=== PATIENT | male | born 1955 | race Caucasian/White ===

== ENCOUNTER 2020-01-17 08:13 | Emergency (ER) | payer MEDICAID ==
[~2020-01-17] VITALS: Ht 177.8 cm; Wt 54.9 kg
[2020-01-17] MEDS ORDERED: LORazepam 1MG TABLET PO ONE (08:30)
[2020-01-17] MEDS ORDERED: LORazepam 1MG TABLET ONE (08:40)
[2020-01-17 08:56] LABS: BASOPHILS # (AUTO) 0.03 x10^3/uL (0-0.1); BASOPHILS % (AUTO) 0 % (0-1); EOSINOPHILS # (AUTO) 0.02 x10^3/uL (0-0.4); EOSINOPHILS % (AUTO) 0 % (1-7); LYMPHOCYTES # (AUTO) 0.72 x10^3/uL (1-3.4); LYMPHOCYTES % (AUTO) 7 % (22-44); MD NO; MEAN CORPUSCULAR HEMOGLOBIN 34.7 pg (27.5-34.5); MEAN PLATELET VOLUME 6.2 fL (7.4-10.4); MONOCYTES # (AUTO) 0.67 x10^3/uL (0.2-0.8); MONOCYTES % (AUTO) 7 % (2-9); NEUTROPHILS # (AUTO) 8.37 x10^3/uL (1.8-6.8); NEUTROPHILS % (AUTO) 85 % (42-75); PLATELET COUNT 333 x10^3/uL (130-400); RED BLOOD COUNT 4.33 x10^6/uL (4.38-5.82)
[2020-01-17 08:59] LABS: INTERNATIONAL NORMALIZED RATIO 1.03 (0.93-1.1); PROTHROMBIN TIME 10.9 Seconds (9.6-11.5)
[2020-01-17] MEDS ORDERED: SODIUM CHLORIDE FLUSH 10ML SYR IVF ONE (09:00)
--- NOTE | 2020-01-17 09:00 | NUR ---
PT GAVE URINE SAMPLE WITH ROVERTO BLOOD.
[2020-01-17 09:01] LABS: ALBUMIN 3.9 g/dL (3.4-5.0); ANION GAP 9 mmol/L (5-15); CALCIUM 9.1 mg/dL (8.5-10.1); CHLORIDE 99 mmol/L (98-107); CREATININE 0.82 mg/dL (0.7-1.3)
--- NOTE | 2020-01-17 09:24 | NUR ---
catheter placed with pt tolerating well. no clots but hematuria. flused with normal saline 500 ml until clear.
--- NOTE | 2020-01-17 10:23 | NUR ---
UPON RETURN FROM CT PROVIDED PO WATER AT PROVIDER REQUEST. CATHETER DRAINING BLOOD TINGED URINE, LESS BLOODY THAN BEFORE BLADDER FLUSHED
[2020-01-17] MEDS ORDERED: OMNIPAQUE 350 MG/ML, 150 ML BOTTLE ONE (10:25)
[2020-01-17 11:25] LABS: MICROSCOPIC INDICATED
[2020-01-17 11:37] LABS: CULTURE INDICATED? NO
--- NOTE | 2020-01-17 11:45 | NUR ---
PT SLEEPING. BLOOD TINTED URINE NOTED IN URINE COLLECTION TUBE.
--- NOTE | 2020-01-17 11:58 | NUR ---
SPEAKING WITH PT ABOUT CT RESULTS
[2020-01-17 12:41] VITALS: BP 141/94
== END 2020-01-17 12:43 | disposition home or self-care (01) ==
LOC: ED 10:16
DX: R31.0 Gross hematuria (principal); Z85.9 Personal history of malignant neoplasm, unspecified; I10 Essential (primary) hypertension
CPT/HCPCS: 36415; 51702; 74178; 80048; 81001; 82040; 85025; 85610; 85730; 99285; Q9967

== ENCOUNTER 2020-03-09 08:28 | Day surgery (SDC) | payer MEDICAID ==
[~2020-03-09] VITALS: Ht 172.7 cm; Wt 50.0 kg
[2020-03-09] MEDS ORDERED: SODIUM CHLORIDE 0.9% 1,000 ML IV ONE (09:00)
[2020-03-09 09:02] VITALS: BP 89/60
[2020-03-09] MEDS ORDERED: LIDOCAINE 1%, 20ML ONE (10:09)
[2020-03-09] MEDS ORDERED: LIDOCAINE 1%, 10ML ONE (10:09)
[2020-03-09] MEDS ORDERED: VANCOMYCIN PMX 1GM/200ML 200 ML IV STA (10:36)
== END 2020-03-09 12:55 | disposition home or self-care (01) ==
LOC: OUT 08:28
PROVIDERS: ATTEND Specialist
DX: C67.1 Malignant neoplasm of dome of bladder (principal); I10 Essential (primary) hypertension; F17.210 Nicotine dependence, cigarettes, uncomplicated; Z79.899 Other long term (current) drug therapy; Z98.890 Other specified postprocedural states
CPT/HCPCS: 36561; 76937; 77001; 99156; 99157; C1788; C1894; J1642

== ENCOUNTER → 2020-03-10 | Outpatient (CLI) | payer MEDICAID ==
[~2020-03-10] MED LIST: FENTANYL PF 100 MCG/2ML ONE; FLUMAZENIL 0.1 MG/1 ML, 5ML ONE; MIDAZOLAM 1 MG/ML, 5ML ONE; NALOXONE 1 MG/ML, 2ML ONE; OMNIPAQUE 350 MG/ML, 150 ML BOTTLE ONE
== END | disposition home or self-care (01) ==
LOC: CFH 09:07
PROVIDERS: ATTEND Specialist
DX: C67.1 Malignant neoplasm of dome of bladder (principal); I71.2 Thoracic aortic aneurysm, without rupture; R91.1 Solitary pulmonary nodule; J98.11 Atelectasis; M85.88 Other specified disorders of bone density and structure, other site; S22.080D Wedge compression fracture of T11-T12 vertebra, subsequent encounter for fracture with routine healing; S32.020D Wedge compression fracture of second lumbar vertebra, subsequent encounter for fracture with routine healing; X58.XXXD Exposure to other specified factors, subsequent encounter; N28.1 Cyst of kidney, acquired; K76.0 Fatty (change of) liver, not elsewhere classified
CPT/HCPCS: 71260; 74177; J2250; J3010; Q9967; J2310

== ENCOUNTER 2020-03-29 04:56 | Inpatient (IN) | payer MEDICAID ==
[~2020-03-29] VITALS: Ht 180.3 cm; Wt 50.0 kg
[2020-03-29] MEDS ORDERED: SODIUM CHLORIDE 0.9% 1,000 ML IV ONE (05:04)
[2020-03-29] MEDS ORDERED: LIDOCAINE 2%,20 ML JEL.PF.APP MM ONE ×2 (05:20→05:30)
[2020-03-29 05:27] LABS: BASOPHILS # (AUTO) 0.03 x10^3/uL (0-0.1); BASOPHILS % (AUTO) 1 % (0-1); EOSINOPHILS # (AUTO) 0.02 x10^3/uL (0-0.4); EOSINOPHILS % (AUTO) 0 % (1-7); LYMPHOCYTES # (AUTO) 0.86 x10^3/uL (1-3.4); LYMPHOCYTES % (AUTO) 17 % (22-44); MD NO; MEAN CORPUSCULAR HEMOGLOBIN 33.8 pg (27.5-34.5); MEAN CORPUSCULAR HGB CONC 34.3 g/dL (33.2-36.2); MEAN CORPUSCULAR VOLUME 98.6 fL (81-97); MEAN PLATELET VOLUME 6.3 fL (7.4-10.4); MONOCYTES # (AUTO) 0.35 x10^3/uL (0.2-0.8); MONOCYTES % (AUTO) 7 % (2-9); NEUTROPHILS # (AUTO) 3.86 x10^3/uL (1.8-6.8); NEUTROPHILS % (AUTO) 76 % (42-75); PLATELET COUNT 269 x10^3/uL (130-400); RED BLOOD COUNT 3.62 x10^6/uL (4.38-5.82); RED CELL DISTRIBUTION WIDTH 12.7 % (9.4-14.8)
[2020-03-29] MEDS ORDERED: SODIUM CHLORIDE FLUSH 10ML SYR IVF ONE (05:30)
[2020-03-29 05:37] LABS: INTERNATIONAL NORMALIZED RATIO 1.03 (0.93-1.1); PROTHROMBIN TIME 10.9 Seconds (9.6-11.5)
[2020-03-29 05:38] LABS: ALBUMIN 3.4 g/dL (3.4-5.0); ANION GAP 9 mmol/L (5-15); CALCIUM 8.8 mg/dL (8.5-10.1); CHLORIDE 102 mmol/L (98-107); CREATININE 0.84 mg/dL (0.7-1.3)
[2020-03-29 05:44] LABS: MICROSCOPIC INDICATED
[2020-03-29] MEDS ORDERED: CEFTRIAXONE PMX 1GM/50ML 50 ML IV ONE (06:00)
--- NOTE | 2020-03-29 06:30 | NUR ---
TAVARES CATHETER INSERTED WITH 30CC BALLOON INFLATED. CONTINUOUS BLADDER IRRIGATION SET UP AND STARTING TO DRAIN FROM DARK RED TO PINK ON THE FIRST LITER OF NS.
[2020-03-29] MEDS ORDERED: LISI-170 PO (06:52)
--- NOTE | 2020-03-29 06:55 | NUR ---
REPORT RECEIVED FROM CHRIS CHINO. BLADDER IRRIGATION IN PROCESS.
[2020-03-29] MEDS ORDERED: MORPHINE SULFATE 4 MG/ML, 1ML ONE (06:57)
[2020-03-29] MEDS ORDERED: ONDANSETRON 2MG/ML, 2ML ONE (06:57)
[2020-03-29] MEDS ORDERED: ONDANSETRON 2MG/ML, 2ML IVPush ONE (07:00)
[2020-03-29] MEDS ORDERED: MORPHINE SULFATE 4 MG/ML, 1ML IVPush ONE (07:00)
--- NOTE | 2020-03-29 07:23 | NUR ---
dr baldwin spoke with dr stuart
--- NOTE | 2020-03-29 07:27 | NUR ---
REPORT GIVEN TO TATIANA CHINO. PT IS READY FOR TRANSPORT AT THIS TIME.
[2020-03-29] MEDS ORDERED: CEFTRIAXONE PMX 1GM/50ML 50 ML ONE (07:28)
--- NOTE | 2020-03-29 07:43 | NUR ---
3L CBI COMPLETED IN ED. URINE STILL DARK RED. PT TRANSPORTED UPSTAIRS. PER DR.COLEY LOMAX TO CLAMP CBI DURING TRANSPORT.
[2020-03-29 08:53] VITALS: BP 134/98
[2020-03-29] MEDS ORDERED: ONDANSETRON ODT 4 MG PO PRN (09:00)
[2020-03-29] MEDS ORDERED: ONDANSETRON 2MG/ML, 2ML IVPush PRN (09:00)
[2020-03-29] MEDS: LISINOPRIL 20 MG TABLET PO SCH (09:18)
[2020-03-29] MEDS: NICOTINE 14MG/24 HR PATCH.TD24 TD SCH (09:18)
[2020-03-29 15:09] VITALS: BP 124/80
[2020-03-29 18:30] VITALS: BP 112/76
[2020-03-29 18:39] LABS: BASOPHILS # (AUTO) 0.04 x10^3/uL (0-0.1); BASOPHILS % (AUTO) 1 % (0-1); EOSINOPHILS # (AUTO) 0.05 x10^3/uL (0-0.4); EOSINOPHILS % (AUTO) 1 % (1-7); LYMPHOCYTES # (AUTO) 0.92 x10^3/uL (1-3.4); LYMPHOCYTES % (AUTO) 14 % (22-44); MD NO; MEAN CORPUSCULAR HEMOGLOBIN 33.7 pg (27.5-34.5); MEAN CORPUSCULAR HGB CONC 33.8 g/dL (33.2-36.2); MEAN CORPUSCULAR VOLUME 99.7 fL (81-97); MEAN PLATELET VOLUME 6.1 fL (7.4-10.4); MONOCYTES # (AUTO) 0.65 x10^3/uL (0.2-0.8); MONOCYTES % (AUTO) 10 % (2-9); NEUTROPHILS # (AUTO) 5.16 x10^3/uL (1.8-6.8); NEUTROPHILS % (AUTO) 76 % (42-75); PLATELET COUNT 287 x10^3/uL (130-400); RED BLOOD COUNT 3.76 x10^6/uL (4.38-5.82); RED CELL DISTRIBUTION WIDTH 12.6 % (9.4-14.8)
[2020-03-30] MEDS: OXYcodone/APAP 5/325MG TABLET PO PRN ×2 (00:36→13:12)
[2020-03-30 00:56] VITALS: BP 148/82
[2020-03-30 05:18] LABS: BASOPHILS # (AUTO) 0.02 x10^3/uL (0-0.1); BASOPHILS % (AUTO) 0 % (0-1); EOSINOPHILS # (AUTO) 0.09 x10^3/uL (0-0.4); EOSINOPHILS % (AUTO) 1 % (1-7); LYMPHOCYTES # (AUTO) 1.16 x10^3/uL (1-3.4); LYMPHOCYTES % (AUTO) 17 % (22-44); MD NO; MEAN CORPUSCULAR HGB CONC 33.6 g/dL (33.2-36.2); MEAN CORPUSCULAR VOLUME 98.2 fL (81-97); MEAN PLATELET VOLUME 6.5 fL (7.4-10.4); MONOCYTES # (AUTO) 0.57 x10^3/uL (0.2-0.8); MONOCYTES % (AUTO) 8 % (2-9); NEUTROPHILS # (AUTO) 4.97 x10^3/uL (1.8-6.8); NEUTROPHILS % (AUTO) 73 % (42-75); PLATELET COUNT 275 x10^3/uL (130-400); RED BLOOD COUNT 3.91 x10^6/uL (4.38-5.82); RED CELL DISTRIBUTION WIDTH 12.5 % (9.4-14.8)
[2020-03-30 05:25] LABS: ANION GAP 7 mmol/L (5-15); CHLORIDE 103 mmol/L (98-107)
[2020-03-30 05:27] LABS: CREATININE 0.68 mg/dL (0.7-1.3)
[2020-03-30 07:04] VITALS: BP 138/75
[2020-03-30] MEDS: CEFTRIAXONE PMX 1GM/50ML 50 ML IV SCH (09:35)
[2020-03-30] MEDS: CHOLECALCIFEROL 5,000u TAB PO SCH (09:36)
[2020-03-30] MEDS: NICOTINE 14MG/24 HR PATCH.TD24 TD SCH (09:36)
[2020-03-30] MEDS: LISINOPRIL 20 MG TABLET PO SCH (09:53)
[2020-03-30 14:30] VITALS: BP 127/74
[2020-03-30 19:58] VITALS: BP 101/72
[2020-03-31 01:25] VITALS: BP 110/74
[2020-03-31] MEDS: OXYcodone/APAP 5/325MG TABLET PO PRN ×4 (02:02→20:30)
[2020-03-31 06:55] VITALS: BP 114/75
[2020-03-31] MEDS: CEFTRIAXONE PMX 1GM/50ML 50 ML IV SCH (07:34)
[2020-03-31] MEDS: LISINOPRIL 20 MG TABLET PO SCH (07:34)
[2020-03-31] MEDS: CHOLECALCIFEROL 5,000u TAB PO SCH (07:34)
[2020-03-31] MEDS: NICOTINE 14MG/24 HR PATCH.TD24 TD SCH (07:35)
[2020-03-31] MEDS: OXYBUTYNIN CHLORIDE 5 MG TABLET PO SCH ×3 (09:23→20:30)
[2020-03-31 09:26] LABS: BASOPHILS % (AUTO) 0 % (0-1); EOSINOPHILS # (AUTO) 0.03 x10^3/uL (0-0.4); EOSINOPHILS % (AUTO) 1 % (1-7); LYMPHOCYTES # (AUTO) 0.86 x10^3/uL (1-3.4); LYMPHOCYTES % (AUTO) 13 % (22-44); MD NO; MEAN CORPUSCULAR HEMOGLOBIN 33.4 pg (27.5-34.5); MEAN CORPUSCULAR HGB CONC 33.3 g/dL (33.2-36.2); MEAN CORPUSCULAR VOLUME 100.1 fL (81-97); MEAN PLATELET VOLUME 5.8 fL (7.4-10.4); MONOCYTES # (AUTO) 0.45 x10^3/uL (0.2-0.8); MONOCYTES % (AUTO) 7 % (2-9); NEUTROPHILS # (AUTO) 5.34 x10^3/uL (1.8-6.8); NEUTROPHILS % (AUTO) 80 % (42-75); PLATELET COUNT 304 x10^3/uL (130-400); RED BLOOD COUNT 4.16 x10^6/uL (4.38-5.82); RED CELL DISTRIBUTION WIDTH 12.4 % (9.4-14.8)
[2020-03-31 09:35] LABS: ANION GAP 7 mmol/L (5-15); CALCIUM 9.1 mg/dL (8.5-10.1); CHLORIDE 103 mmol/L (98-107); CREATININE 0.66 mg/dL (0.7-1.3)
[2020-03-31 12:35] VITALS: BP 94/61
[2020-03-31 18:10] VITALS: BP 94/57
[2020-04-01] MEDS: OXYcodone/APAP 5/325MG TABLET PO PRN ×4 (01:17→19:41)
[2020-04-01 01:18] VITALS: BP 101/69
[2020-04-01 08:00] VITALS: BP 105/70
[2020-04-01] MEDS: OXYBUTYNIN CHLORIDE 5 MG TABLET PO SCH ×3 (08:40→19:41)
[2020-04-01] MEDS: LISINOPRIL 20 MG TABLET PO SCH (08:40)
[2020-04-01] MEDS: CEFTRIAXONE PMX 1GM/50ML 50 ML IV SCH (08:40)
[2020-04-01] MEDS: NICOTINE 14MG/24 HR PATCH.TD24 TD SCH (08:41)
[2020-04-01] MEDS: CHOLECALCIFEROL 5,000u TAB PO SCH (11:00)
[2020-04-01 12:38] VITALS: BP 115/76
[2020-04-01 18:08] VITALS: BP 102/68
[2020-04-01] MEDS ORDERED: BISACODYL 10 MG SUPP PR PRN (18:30)
[2020-04-01] MEDS ORDERED: POLYETHYLENE GLYCOL 17 GM PACKET PO PRN (18:30)
[2020-04-01] MEDS: DOCUSATE 50 MG/5 ML ORAL SOL PO SCH (20:10)
[2020-04-02 00:22] VITALS: BP 100/65
[2020-04-02] MEDS: OXYcodone/APAP 5/325MG TABLET PO PRN ×4 (04:47→14:00)
[2020-04-02 06:01] LABS: BASOPHILS # (AUTO) 0.04 x10^3/uL (0-0.1); BASOPHILS % (AUTO) 0 % (0-1); EOSINOPHILS # (AUTO) 0.08 x10^3/uL (0-0.4); EOSINOPHILS % (AUTO) 1 % (1-7); LYMPHOCYTES # (AUTO) 0.84 x10^3/uL (1-3.4); LYMPHOCYTES % (AUTO) 9 % (22-44); MD NO; MEAN CORPUSCULAR HEMOGLOBIN 33.4 pg (27.5-34.5); MEAN CORPUSCULAR HGB CONC 33.8 g/dL (33.2-36.2); MEAN CORPUSCULAR VOLUME 98.7 fL (81-97); MEAN PLATELET VOLUME 6.4 fL (7.4-10.4); MONOCYTES # (AUTO) 0.81 x10^3/uL (0.2-0.8); MONOCYTES % (AUTO) 9 % (2-9); NEUTROPHILS % (AUTO) 81 % (42-75); PLATELET COUNT 282 x10^3/uL (130-400); RED BLOOD COUNT 4.08 x10^6/uL (4.38-5.82); RED CELL DISTRIBUTION WIDTH 12.5 % (9.4-14.8)
[2020-04-02 07:44] VITALS: BP 104/70
[2020-04-02] MEDS: CEFTRIAXONE PMX 1GM/50ML 50 ML IV SCH (08:41)
[2020-04-02] MEDS: DOCUSATE 50 MG/5 ML ORAL SOL PO SCH (08:41)
[2020-04-02] MEDS: CHOLECALCIFEROL 5,000u TAB PO SCH (08:41)
[2020-04-02] MEDS: OXYBUTYNIN CHLORIDE 5 MG TABLET PO SCH ×2 (08:42→16:33)
[2020-04-02] MEDS: NICOTINE 14MG/24 HR PATCH.TD24 TD SCH (08:43)
[2020-04-02] MEDS ORDERED: LISINOPRIL 5 MG TABLET PO SCH (09:00)
[2020-04-02] MEDS ORDERED: LISINOPRIL 10 MG TABLET PO SCH (09:00)
[2020-04-02 12:15] VITALS: BP 100/69
[2020-04-02] MEDS ORDERED: POLY17PO5 PO (15:00)
[2020-04-02] MEDS ORDERED: CHOL500045 PO (15:00)
[2020-04-02] MEDS ORDERED: NICO-486 TD (15:00)
[2020-04-02] MEDS ORDERED: LISI5TAB7 PO (15:00)
[2020-04-02] MEDS ORDERED: OXYB5TAB10 PO (15:00)
[2020-04-02] MEDS ORDERED: CEFU250T66 PO (15:07)
== END 2020-04-02 17:25 | disposition home or self-care (01) | DRG 690 ==
LOC: ED 05:12 → EDIP 07:04 → 3WST 07:47
PROVIDERS: ADMIT Internal Medicine; ATTEND Hospitalist
DX: N39.0 Urinary tract infection, site not specified (principal); D62 Acute posthemorrhagic anemia; E87.1 Hypo-osmolality and hyponatremia; N40.0 Benign prostatic hyperplasia without lower urinary tract symptoms; R31.0 Gross hematuria; D53.9 Nutritional anemia, unspecified; Z88.0 Allergy status to penicillin; Z88.8 Allergy status to other drugs, medicaments and biological substances; I10 Essential (primary) hypertension; J44.9 Chronic obstructive pulmonary disease, unspecified; G89.29 Other chronic pain; M54.9 Dorsalgia, unspecified; D63.8 Anemia in other chronic diseases classified elsewhere; F17.210 Nicotine dependence, cigarettes, uncomplicated; M81.0 Age-related osteoporosis without current pathological fracture; Z79.899 Other long term (current) drug therapy; C67.9 Malignant neoplasm of bladder, unspecified; R91.1 Solitary pulmonary nodule
CPT/HCPCS: 36415; 80048; 81001; 82040; 82306; 82310; 83970; 85025; 85610; 87086; 96374; 96375; 99285; G0378; J0696; J2405; J2270; J7030

== ENCOUNTER → 2020-07-11 | Outpatient (CLI) | payer MEDICAID ==
[~2020-07-11] MED LIST changes: +CEFU250T66 PO; +CHOL500045 PO; -FENTANYL PF 100 MCG/2ML ONE; -FLUMAZENIL 0.1 MG/1 ML, 5ML ONE; +LISI-170 PO; +LISI5TAB7 PO; -MIDAZOLAM 1 MG/ML, 5ML ONE; -NALOXONE 1 MG/ML, 2ML ONE; +NICO-486 TD; +OMNIPAQUE 350 MG/ML, 100ML BOTTLE ONE; -OMNIPAQUE 350 MG/ML, 150 ML BOTTLE ONE; +OXYB5TAB10 PO; +POLY17PO5 PO
== END | disposition home or self-care (01) ==
LOC: CFH 13:43
PROVIDERS: ATTEND Specialist
DX: C67.1 Malignant neoplasm of dome of bladder (principal); N28.1 Cyst of kidney, acquired; M85.88 Other specified disorders of bone density and structure, other site; M48.55XA Collapsed vertebra, not elsewhere classified, thoracolumbar region, initial encounter for fracture
CPT/HCPCS: 74177; Q9967

== ENCOUNTER → 2021-02-22 | Outpatient (CLI) | payer MEDICAID | END | disposition home or self-care (01) | LOC: CFH 09:18 | PROVIDERS: ATTEND Urology | DX: C67.9 Malignant neoplasm of bladder, unspecified (principal); I71.2 Thoracic aortic aneurysm, without rupture; M48.55XA Collapsed vertebra, not elsewhere classified, thoracolumbar region, initial encounter for fracture; I70.0 Atherosclerosis of aorta; N28.1 Cyst of kidney, acquired; K76.89 Other specified diseases of liver; Z90.79 Acquired absence of other genital organ(s); Z90.6 Acquired absence of other parts of urinary tract | CPT/HCPCS: 71260; 74177; Q9967 ==

== ENCOUNTER → 2021-03-16 | Outpatient (CLI) | payer MEDICAID ==
[~2021-03-16] MED LIST changes: -OMNIPAQUE 350 MG/ML, 100ML BOTTLE ONE
== END | disposition home or self-care (01) ==
LOC: CFH 09:11
PROVIDERS: ATTEND Specialist
DX: C67.1 Malignant neoplasm of dome of bladder (principal); M81.0 Age-related osteoporosis without current pathological fracture; M85.89 Other specified disorders of bone density and structure, multiple sites
CPT/HCPCS: 77080